=== PATIENT | female | born 1990 | race Caucasian/White ===

== ENCOUNTER → 2016-10-31 | Outpatient (REF) | payer OTHER | LOC: M LAB REF 12:35 | PROVIDERS: ATTEND Physician Assistant Medical | DX: J02.9 Acute pharyngitis, unspecified (principal) ==

== ENCOUNTER → 2017-05-16 | Outpatient (REF) | payer OTHER ==
[~2017-05-16] MED LIST: MULTTAB20 PO; REGL10TA6 PO
== END ==
LOC: M LAB REF 09:20
PROVIDERS: ATTEND Physician Assistant
DX: J06.9 Acute upper respiratory infection, unspecified (principal)

== ENCOUNTER 2017-06-19 18:36 | Emergency (ER) | payer OTHER ==
[~2017-06-19] VITALS: Ht 152.4 cm; Wt 86.4 kg
[2017-06-19] MEDS ORDERED: MULTTAB20 PO (18:42)
[2017-06-19] MEDS ORDERED: NS 1,000 ML IV ONE (21:15)
[2017-06-19 21:36] LABS: BASO % 0.4 % (0.0-1.0); EOS # 0.4 10^3/uL (0.0-0.50); EOS % 3.8 % (0.0-3.0); IMMATURE GRANULOCYTE % 0.3 % (0-0); LYMPH # 2.5 10^3/uL (1.5-6.5); LYMPH % 26.5 % (24.0-44.0); MEAN CORPUSCULAR HEMOGLOBIN 31.5 pg (27.0-33.0); MEAN CORPUSCULAR HGB CONC 35.1 g/dl (32.0-36.5); MONO # 0.7 10^3/uL (0.0-0.8); NEUTROPHILS # 5.9 10^3/uL (1.8-7.7); PLATELET COUNT, AUTOMATED 218 10^3/uL (150-450); RED CELL DISTRIBUTION WIDTH 12.5 % (11.5-14.5); WHITE BLOOD COUNT 9.5 10^3/uL (4.0-10.0)
[2017-06-19 22:15] LABS: ANION GAP 7 MEQ/L (8-16); BLOOD UREA NITROGEN 8 MG/DL (7-18); CARBON DIOXIDE LEVEL 26 MEQ/L (21-32); CHLORIDE LEVEL 104 MEQ/L (98-107); CREATININE FOR GFR 0.58 MG/DL (0.55-1.02); GLOMERULAR FILTRATION RATE > 60.0 (>60); GLUCOSE, FASTING 84 MG/DL (70-105); HCG, SERUM QUANTITATIVE 42814 MIU/ML; POTASSIUM SERUM 3.9 MEQ/L (3.5-5.1); SODIUM LEVEL 137 MEQ/L (136-145)
--- NOTE | 2017-06-19 23:30 | REPUSA ---
HISTORY: PAIN. LMP: 05/02/17. Gestational age by LMP: 6 weeks 6 days. DANNY by LMP: 02/06/18. TECHNIQUE: Transabdominal obstetrical ultrasound examination, with color flow Doppler imaging. FINDINGS: Examination demonstrates a single viable intrauterine with average ultrasound age of 7 weeks 3 days based upon pole measurement of 12 mm, with DANNY of 02/02/18. Active heart rate measured 150 bpm. No subchorionic hemorrhage was identified. No extrauterine pathologic mass lesions or abnormal fluid collections are seen. Corpus luteum cyst i s noted in the left ovary. IMPRESSION: Viable intrauterine single as discussed above with average ultrasound age of 7 weeks 3 days and DANNY of 02/02/18. Clinical correlation and followup imaging may be warranted as clinically indicated.
[2017-06-19] MEDS ORDERED: REGL10TA6 PO (23:48)
[2017-06-19 23:59] VITALS: BP 123/65
[2017-06-21] MEDS ORDERED: METAL LOCK LOOP XX ONE (17:03)
== END 2017-06-20 00:04 | disposition home or self-care (01) ==
LOC: M ED 18:36
DX: O99.89 Other specified diseases and conditions complicating pregnancy, childbirth and the puerperium (principal); A60.03 Herpesviral cervicitis; O99.281 Endocrine, nutritional and metabolic diseases complicating pregnancy, first trimester; E86.0 Dehydration; Z3A.01 Less than 8 weeks gestation of pregnancy; O99.331 Smoking (tobacco) complicating pregnancy, first trimester; F17.210 Nicotine dependence, cigarettes, uncomplicated; Z88.5 Allergy status to narcotic agent

== ENCOUNTER 2017-09-26 11:21 | Emergency (ER) | payer MEDICAID, OTHER ==
[2017-09-26 14:23] LABS: ALBUMIN 2.9 GM/DL (3.2-5.2); ALBUMIN/GLOBULIN RATIO 0.88 (1.00-1.93); ALKALINE PHOSPHATASE 83 U/L (45-117); ALT/SGPT 17 U/L (12-78); ANION GAP 7 MEQ/L (8-16); AST/SGOT 13 U/L (7-37); BILIRUBIN,DIRECT < 0.1 MG/DL (0.0-0.2); BILIRUBIN,TOTAL 0.3 MG/DL (0.2-1.0); BLOOD UREA NITROGEN 7 MG/DL (7-18); CALCIUM LEVEL 8.5 MG/DL (8.5-10.1); CARBON DIOXIDE LEVEL 24 MEQ/L (21-32); CHLORIDE LEVEL 106 MEQ/L (98-107); CREATININE FOR GFR 0.35 MG/DL (0.55-1.02); GLOMERULAR FILTRATION RATE > 60.0 (>60); GLUCOSE, FASTING 81 MG/DL (70-100); POTASSIUM SERUM 3.8 MEQ/L (3.5-5.1); SODIUM LEVEL 137 MEQ/L (136-145); TOTAL PROTEIN 6.2 GM/DL (6.4-8.2)
[2017-09-26 14:25] LABS: AMORPHOUS SEDIMENT MODERATE (NEGATIVE); APPEARANCE, URINE CLOUDY (CLEAR); BACTERIA, URINE AUTO NEGATIVE (NEGATIVE); BILIRUBIN, URINE AUTO NEGATIVE (NEGATIVE); BLOOD, URINE BLOOD NEGATIVE (NEGATIVE); COLOR, URINE YELLOW (YELLOW); GLUCOSE, URINE (UA) AUTO NEGATIVE (NEGATIVE); KETONE, URINE AUTO NEGATIVE (NEGATIVE); LEUKOCYTE ESTERASE, URINE AUTO 3+ (NEGATIVE); MUCUS, URINE SMALL (NEGATIVE); NITRITE, URINE AUTO NEGATIVE (NEGATIVE); PROTEIN, URINE AUTO NEGATIVE (NEGATIVE); RBC, URINE AUTO 8 /HPF (0-3); SPECIFIC GRAVITY URINE AUTO 1.019 (1.002-1.035); SQUAMOUS EPITHELIAL CELL UR AU 9 /HPF (0-6); WBC, URINE AUTO 6 /HPF (0-3)
[2017-09-26 14:34] LABS: INFLUENZA A AMPLIFICATION NEGATIVE (NEGATIVE); INFLUENZA B AMPLIFICATION NEGATIVE (NEGATIVE)
== END 2017-09-26 15:44 | disposition home or self-care (01) ==
LOC: M ED 11:21
DX: O99.512 Diseases of the respiratory system complicating pregnancy, second trimester (principal); J06.9 Acute upper respiratory infection, unspecified; J45.909 Unspecified asthma, uncomplicated; O99.332 Smoking (tobacco) complicating pregnancy, second trimester; F17.210 Nicotine dependence, cigarettes, uncomplicated; Z3A.21 21 weeks gestation of pregnancy; Z98.890 Other specified postprocedural states; Z88.5 Allergy status to narcotic agent
CPT/HCPCS: 80076

== ENCOUNTER 2017-10-24 15:35 | Emergency (ER) | payer MEDICAID ==
[2017-10-24 16:37] LABS: HEMATOCRIT 31.7 % (36.0-47.0); HEMOGLOBIN 11.4 g/dl (12.0-16.0); MEAN CORPUSCULAR HEMOGLOBIN 32.6 pg (27.0-33.0); MEAN CORPUSCULAR VOLUME 90.6 fl (80.0-96.0); PLATELET COUNT, AUTOMATED 228 10^3/uL (150-450); RED CELL DISTRIBUTION WIDTH 12.5 % (11.5-14.5); WHITE BLOOD COUNT 9.6 10^3/uL (4.0-10.0)
[2017-10-24] MEDS ORDERED: METAL LOCK LOOP XX (16:53)
[2017-10-24 16:58] LABS: ANION GAP 8 MEQ/L (8-16); BLOOD UREA NITROGEN 7 MG/DL (7-18); CALCIUM LEVEL 8.7 MG/DL (8.5-10.1); CARBON DIOXIDE LEVEL 24 MEQ/L (21-32); CHLORIDE LEVEL 105 MEQ/L (98-107); CREATININE FOR GFR 0.44 MG/DL (0.55-1.30); GLOMERULAR FILTRATION RATE > 60.0 (>60); GLUCOSE, FASTING 79 MG/DL (70-100); POTASSIUM SERUM 3.9 MEQ/L (3.5-5.1); SODIUM LEVEL 137 MEQ/L (136-145)
[2017-10-24] MEDS: NS 1,000 ML IV (17:00)
[2017-10-24 18:01] LABS: KETONE, URINE AUTO RFX NEGATIVE (NEGATIVE); MUCUS, URINE RFX SMALL (NEGATIVE); NITRITE, URINE AUTO RFX NEGATIVE (NEGATIVE); RBC, URINE AUTO RFX 11 /HPF (0-3); SPECIFIC GRAVITY UR AUTO RFX 1.005 (1.002-1.035); SQUAM EPITHELIAL CELL UR AURFX 17 /HPF (0-6); WBC, URINE AUTO RFX 5 /HPF (0-3)
[2017-10-24 18:03] LABS: LEUKOCYTE ESTERASE UR AUTO RFX 3+ (NEGATIVE)
== END 2017-10-24 19:30 | disposition home or self-care (01) ==
LOC: M ED 15:35
DX: O99.89 Other specified diseases and conditions complicating pregnancy, childbirth and the puerperium (principal); R55 Syncope and collapse; O99.512 Diseases of the respiratory system complicating pregnancy, second trimester; J45.909 Unspecified asthma, uncomplicated; O99.332 Smoking (tobacco) complicating pregnancy, second trimester; F17.210 Nicotine dependence, cigarettes, uncomplicated; Z3A.25 25 weeks gestation of pregnancy; Z88.5 Allergy status to narcotic agent
CPT/HCPCS: 93005

== ENCOUNTER → 2017-11-02 | Outpatient (CLI) | payer MEDICAID, OTHER ==
[2017-11-02 14:22] LABS: HEMATOCRIT 31.9 % (36.0-47.0); HEMOGLOBIN 10.9 g/dl (12.0-16.0); MEAN CORPUSCULAR HEMOGLOBIN 32.4 pg (27.0-33.0); MEAN CORPUSCULAR HGB CONC 34.2 g/dl (32.0-36.5); MEAN CORPUSCULAR VOLUME 94.9 fl (80.0-96.0); PLATELET COUNT, AUTOMATED 218 10^3/uL (150-450); RED BLOOD COUNT 3.36 10^6/uL (4.00-5.40); RED CELL DISTRIBUTION WIDTH 12.7 % (11.5-14.5); WHITE BLOOD COUNT 10.4 10^3/uL (4.0-10.0)
[2017-11-02 15:07] LABS: GLUCOSE CHALLENGE TEST 1 HOUR 106 MG/DL (LESS THAN 140)
== END ==
LOC: M WUC 08:42
DX: Z36.89 Encounter for other specified antenatal screening (principal); Z3A.00 Weeks of gestation of pregnancy not specified
CPT/HCPCS: 82950

== ENCOUNTER → 2017-11-17 | Outpatient (REF) | payer OTHER ==
[2017-11-17 14:14] LABS: FREE T4 1.01 NG/DL (0.76-1.46)
== END ==
LOC: M LAB REF 13:01
DX: E04.2 Nontoxic multinodular goiter (principal)
CPT/HCPCS: 84443

== ENCOUNTER → 2017-12-28 | Outpatient (REF) | payer OTHER | LOC: M LAB REF 17:25 | DX: Z36.85 Encounter for antenatal screening for Streptococcus B (principal); Z3A.00 Weeks of gestation of pregnancy not specified | CPT/HCPCS: 87081 ==

== ENCOUNTER 2018-01-11 16:04 | Outpatient (CLI) | payer OTHER ==
[2018-01-11] MEDS ORDERED: LR 1,000 ML IV (16:15)
[2018-01-11] MEDS: LACTATED RINGER'S 1000 ML IV (18:11)
== END 2018-01-11 19:26 | disposition home or self-care (01) ==
LOC: M LDO 16:04
DX: O36.8931 Maternal care for other specified fetal problems, third trimester, fetus 1 (principal); Z3A.37 37 weeks gestation of pregnancy
CPT/HCPCS: 76815

== ENCOUNTER 2018-01-21 15:37 | Inpatient (IN) | payer OTHER ==
[2018-01-21] MEDS: LACTATED RINGER'S 1000 ML IV (16:21)
[2018-01-21 16:46] LABS: HEMATOCRIT 32.3 % (36.0-47.0); HEMOGLOBIN 11.5 g/dl (12.0-15.5); MEAN CORPUSCULAR HEMOGLOBIN 32.7 pg (27.0-33.0); MEAN CORPUSCULAR HGB CONC 35.6 g/dl (32.0-36.5); MEAN CORPUSCULAR VOLUME 91.8 fl (80.0-96.0); PLATELET COUNT, AUTOMATED 221 10^3/uL (150-450); RED BLOOD COUNT 3.52 10^6/uL (4.00-5.40)
[2018-01-21] MEDS ORDERED: FENTANYL 2MCG/ML ROPIVACAINE 0.2% IN 0.9% NACL 200ML IVBAG As Ordered (17:03)
[2018-01-21] MEDS: LR 1,000 ML IV (17:41)
[2018-01-21] MEDS ORDERED: LACTATED RINGER'S 1000 ML IV (18:30)
[2018-01-21] MEDS ORDERED: NALOXONE INJ 0.4 MG/1 ML VIAL (J2310) IV (18:30)
[2018-01-21] MEDS ORDERED: ePHEDrine SULFATE 25 MG/5 ML(5MG/ML) SYRINGE IV (18:30)
[2018-01-21] MEDS ORDERED: FENTANYL/ROPIVACAINE/NACL BAG 200 ML EPIDURAL (18:30)
[2018-01-21] MEDS ORDERED: EPIDURAL COMMENT XX (18:30)
[2018-01-21] MEDS ORDERED: REFRIGERATOR IV KEYS XX (18:30)
[2018-01-21] MEDS ORDERED: diphenhydrAMINE INJ 50MG/ML VIAL (J1200) IV (18:30)
[2018-01-21] MEDS ORDERED: EPIDURAL/PCA KEYS XX (18:30)
[2018-01-21] MEDS ORDERED: ONDANSETRON 4MG/2ML VIAL (J2405) IV (18:30)
[2018-01-21] MEDS: OXYTOCIN DRIP 30 UNITS in APPROPRIATE DILUENT 1 EA IV (20:59)
[2018-01-22] MEDS ORDERED: ANUSOL HC CREAM 30GM TOP
[2018-01-22] MEDS ORDERED: DOCUSATE SODIUM 100 MG CAP PO
[2018-01-22] MEDS ORDERED: DIBUCAINE 1% OINTMENT 30GM TOP
[2018-01-22] MEDS ORDERED: ACETAMINOPHEN 500 MG TAB PO
[2018-01-22] MEDS ORDERED: METHYLERGONOVINE MALEATE 0.2 MG TAB PO
[2018-01-22] MEDS: MEASLES,MUMPS,RUBELLA VACCINE INJ (MMR-II) (90707) SC (01:31)
[2018-01-22] MEDS: RHOGAM 300 MCG (1500 IU) INJ (J2790) IM (01:31)
[2018-01-22] MEDS: OXYTOCIN DRIP 30 UNITS in APPROPRIATE DILUENT 1 EA IV (01:39)
[2018-01-22] MEDS: PRENATAL VITAMINS CHEWABLE TABLET PO (08:34)
[2018-01-22] MEDS: IBUPROFEN 800 MG TAB PO ×2 (08:37→16:05)
[2018-01-23] MEDS: IBUPROFEN 800 MG TAB PO (04:28)
[2018-01-23] MEDS: PRENATAL VITAMINS CHEWABLE TABLET PO (07:48)
== END 2018-01-23 10:20 | disposition home or self-care (01) | DRG 560 ==
LOC: M LDI 15:37 → M OBS 01-22 01:21
PROVIDERS: Advanced Practice Midwife
PROC: 10E0XZZ Delivery of Products of Conception, External Approach (ICD-10-PCS; principal; 2018-01-21)
PROC: 10907ZC Drainage of Amniotic Fluid, Therapeutic from Products of Conception, Via Natural or Artificial Opening (ICD-10-PCS; 2018-01-21)
DX: O99.334 Smoking (tobacco) complicating childbirth (principal); F17.210 Nicotine dependence, cigarettes, uncomplicated; Z3A.38 38 weeks gestation of pregnancy; O32.6XX0 Maternal care for compound presentation, not applicable or unspecified; Z37.0 Single live birth

== ENCOUNTER → 2018-05-14 | Outpatient (CLI) | payer OTHER | LOC: M RAD 19:13 | DX: R05 Cough (principal); R50.9 Fever, unspecified | CPT/HCPCS: 71046 ==

== ENCOUNTER → 2019-12-08 | Outpatient (CLI) | payer OTHER ==
[~2019-12-08] MED LIST changes: +FERR325T3 PO; +KEFL500C17 PO
--- NOTE | 2019-12-08 18:39 | REP ---
Lumbar spine series: Three views. History: Contusion of the lower back and pelvis. Findings: Lumbar vertebral body heights are preserved. Alignment is normal. No fracture or collapse is seen. Pedicles and posterior elements are intact. Psoas margins are symmetric. Sacrum is unremarkable. An IUD is noted just to the left of midline in the pelvis. Impression: Negative three-view lumbar spine series. No evidence of fracture or collapse. Electronically Signed by Foster Carreon MD 12/08/2019 07:19 P
== END ==
LOC: M ADAMS 16:55
PROVIDERS: ATTEND Physician Assistant
DX: S30.0XXA Contusion of lower back and pelvis, initial encounter (principal); X58.XXXA Exposure to other specified factors, initial encounter; Y92.89 Other specified places as the place of occurrence of the external cause; Y93.9 Activity, unspecified; Y99.9 Unspecified external cause status

== ENCOUNTER 2020-07-11 18:39 | Emergency (ER) | payer OTHER ==
[~2020-07-11] VITALS: Ht 152.4 cm; Wt 90.9 kg
[2020-07-11] MEDS ORDERED: NAPR250T4 PO (18:49)
[2020-07-11 19:27] LABS: BASO % 0.2 % (0.0-1.0); EOS % 0.3 % (0.0-3.0); HEMATOCRIT 42.5 % (36.0-47.0); HEMOGLOBIN 14.6 g/dl (12.0-15.5); LYMPH # 1.8 10^3/uL (1.5-5.0); LYMPH % 15.2 % (24.0-44.0); MEAN CORPUSCULAR HEMOGLOBIN 30.2 pg (27.0-33.0); MEAN CORPUSCULAR HGB CONC 34.4 g/dl (32.0-36.5); MEAN CORPUSCULAR VOLUME 87.8 fl (80.0-96.0); MONO # 0.7 10^3/uL (0.0-0.8); MONO % 5.9 % (0.0-5.0); NEUTROPHILS # 9.5 10^3/uL (1.5-8.5); NEUTROPHILS % 78.1 % (36.0-66.0); PLATELET COUNT, AUTOMATED 247 10^3/uL (150-450); RED BLOOD COUNT 4.84 10^6/uL (4.00-5.40); WHITE BLOOD COUNT 12.1 10^3/uL (4.0-10.0)
[2020-07-11 20:14] LABS: ALBUMIN 3.9 GM/DL (3.2-5.2); ALT/SGPT 17 U/L (12-78); BILIRUBIN,DIRECT 0.2 MG/DL (0.0-0.2); BILIRUBIN,TOTAL 0.7 MG/DL (0.2-1.0); LIPASE 63 U/L (73-393); TOTAL PROTEIN 7.4 GM/DL (6.4-8.2)
[2020-07-11] MEDS ORDERED: KEFL500C17 PO (20:31)
[2020-07-11] MEDS ORDERED: PYRI1TAB5 PO (20:32)
[2020-07-11 20:36] LABS: HCG, SERUM QUALITATIVE NEGATIVE (NEGATIVE)
[2020-07-11 20:40] VITALS: BP 118/63
[2020-07-11] MEDS ORDERED: PHENAZOPYRIDINE 100 MG TAB PO ONE (20:45)
[2020-07-11] MEDS ORDERED: CEPHALEXIN 500 MG CAP PO ONE (20:45)
[2020-07-11 21:52] LABS: CHLAMYDIA DNA AMPLIFICATION NEGATIVE (NEGATIVE); GC DNA AMPLIFICATION NEGATIVE (NEGATIVE)
== END 2020-07-11 20:42 | disposition home or self-care (01) ==
LOC: M ED 18:39
DX: N39.0 Urinary tract infection, site not specified (principal); J45.909 Unspecified asthma, uncomplicated; F17.290 Nicotine dependence, other tobacco product, uncomplicated; Z88.5 Allergy status to narcotic agent; Z97.5 Presence of (intrauterine) contraceptive device

== ENCOUNTER → 2021-05-14 | Outpatient (REF) | payer OTHER ==
[~2021-05-14] MED LIST changes: +NAPR-849 PO; +PYRI1TAB5 PO
[2021-05-14 13:01] LABS: BASO % 0.5 % (0.0-1.0); EOS # 0.1 10^3/uL (0.0-0.5); EOS % 1.7 % (0.0-3.0); HEMATOCRIT 40.3 % (36.0-47.0); LYMPH % 30.8 % (24.0-44.0); MEAN CORPUSCULAR HEMOGLOBIN 30.8 pg (27.0-33.0); MEAN CORPUSCULAR HGB CONC 34.7 g/dl (32.0-36.5); MEAN CORPUSCULAR VOLUME 88.6 fl (80.0-96.0); MONO # 0.5 10^3/uL (0.0-0.8); MONO % 7.7 % (2.0-8.0); NEUTROPHILS # 3.8 10^3/uL (1.5-8.5); PLATELET COUNT, AUTOMATED 236 10^3/uL (150-450); RED BLOOD COUNT 4.55 10^6/uL (4.00-5.40); WHITE BLOOD COUNT 6.4 10^3/uL (4.0-10.0)
[2021-05-14 14:13] LABS: ALBUMIN 3.7 GM/DL (3.2-5.2); ALT/SGPT 29 U/L (12-78); BILIRUBIN,TOTAL 0.4 MG/DL (0.2-1.0); BLOOD UREA NITROGEN 10 MG/DL (7-18); CALCIUM LEVEL 9.4 MG/DL (8.5-10.1); CARBON DIOXIDE LEVEL 28 MEQ/L (21-32); CHLORIDE LEVEL 105 MEQ/L (98-107); CHOLESTEROL LEVEL 145 MG/DL (<200); CHOLESTEROL RISK RATIO 4.027 (<5); CREATININE FOR GFR 0.72 MG/DL (0.55-1.30); FREE T4 1.12 NG/DL (0.76-1.46); GLOMERULAR FILTRATION RATE > 60.0 (>60); GLUCOSE, FASTING 93 MG/DL (70-100); HDL CHOLESTEROL 36 MG/DL (>40); LDL CHOLESTEROL 92 MG/DL (<100); NON-HDL-C 109 MG/DL; POTASSIUM SERUM 4.2 MEQ/L (3.5-5.1); SODIUM LEVEL 139 MEQ/L (136-145); TOTAL PROTEIN 6.9 GM/DL (6.4-8.2); TRIGLYCERIDES LEVEL 85 MG/DL (<150)
== END ==
LOC: M SFHCADAM 10:49
PROVIDERS: ATTEND Physician Assistant Medical
DX: E66.01 Morbid (severe) obesity due to excess calories (principal); Z72.0 Tobacco use; E04.1 Nontoxic single thyroid nodule

== ENCOUNTER → 2021-05-24 | Outpatient (CLI) | payer OTHER ==
--- NOTE | 2021-05-24 12:48 | REP ---
INDICATION: CYST OF THYROID. COMPARISON: 06/21/2008 TECHNIQUE: Real-time sonographic evaluation of the thyroid FINDINGS: The right lobe of the thyroid gland measures 5.8 x 2 x 1.9 cm and the left lobe measures 5.1 x 2.1 x 1.8 cm. The isthmus measures between 2 and 3 mm. Once again, there are tiny mm sized cysts 3 in the right lobe and 3 in the left lobe. 1 cyst has developed since the last exam on the right and 2 cysts have developed on the left. IMPRESSION: Mild thyromegaly and minimal incidental cysts as described above. <Electronically signed by Raghav Fine > 05/24/21 [id number]
== END ==
LOC: M RAD 11:54
PROVIDERS: ATTEND Physician Assistant Medical
DX: E04.1 Nontoxic single thyroid nodule (principal)

== ENCOUNTER 2021-07-14 20:38 | Emergency (ER) | payer OTHER ==
[~2021-07-14] VITALS: Ht 154.9 cm; Wt 103.6 kg
[2021-07-14 20:38] VITALS: BP 125/79
--- NOTE | 2021-07-14 21:37 | REPVR ---
PROCEDURE INFORMATION: Exam: XR Left Forearm Exam date and time: 07/14/2021 9:07 PM Age: 31 years old Clinical indication: Injury or trauma; Fall; Swelling (edema); Arm, lower; Left; Additional info: Fell down a couple stairs TECHNIQUE: Imaging protocol: XR Left forearm. Views: 2 views. COMPARISON: No relevant prior studies available. FINDINGS: Bones/joints: Normal. Soft tissues: Normal. IMPRESSION: Negative left forearm. Electronically signed by: Baljeet Timmons On 07/14/2021 21:37:22 PM
--- OUTSIDE RECORDS SUMMARY | 2021-07-14 22:41 | CCD ---
Author Author [facility] Organization [facility] Address Unknown Phone Unavailable Care Team Providers [facility] Owner Name Role Phone Susanne Casey Unavailable PROBLEMS Type Condition ICD9-CM Code [id number] Code Onset Dates Condition S tatus W/U Status Risk SNOMED Code Notes Problem Cyst of thyroid E04.1 Active confirmed 7232 5004 Problem Morbid obesity due to excess calories E66.01 Ac tive confirmed 092335391 ALLERGIES Allergen (clinical drug ingredient) Drug/Non Drug Allergy do cumented on EMR Reaction Allergy Type Onset Date Status codeine Codeine bloody nose Drug Allergy Active ENCOUNTERS from 1990 to 2021-06-04 Encounter Location Date Provider Diagnosis [facility] [address] [place] [address] May, Susanne Casey Cyst of thyroid E04.1 IMMUNIZATIONS No Information SOCIAL HISTORY Tobacco Use: Social History Observation Description Date Details (start date - stop date) Current Smoker Sex Assigned At : Social History Observation Description Sex Assigned At Unknown Education: Question Answer Notes Level of Education: Finished High School Audit Question Answer Notes Total Score: 0 Interpretation: Alcohol Education Language: Question Answer Notes Languages spoken: Upper Sorbian Evangelical: Question Answer Notes Evangelical No worship beliefs that would impact health care. Sexual Hx: Question Answer Notes Had sex in the last 12 months (vaginal, oral, or anal)? Yes LMP: 05/01/21 Have you ever had an STD? No with Men only Use protection? No Drug and Alcohol Question Answer Notes Total Score: 0 Interpretation: No problems reported Alcohol Screening: Question Answer Notes Did you have a drink containing alcohol in the past year? No Points 0 Interpretation Negative Tobacco Use: Question Answer Notes Are you a: current smoker vape Are you interested in quitting? Thinking about quitting Counseled the patient on smoking cessation, education provid ed 05/14/2021 REASON FOR REFERRAL No Information VITAL SIGNS No information MEDICATIONS Medication SIG (Take, Route, Frequency, Duration) Notes Start Da te End Date Status IUD's Active Tylenol 325 MG 1 tablet as needed Orally every 6 hrs Active PROCEDURES No Information RESULTS No Results REASON FOR VISIT US MEDICAL (GENERAL) HISTORY Type Description Date Medical History obesity Medical History seasonal allergies Medical History reece dep Medical History cyst on thyroid Surgical History reconstruction on middle left finger 199 6 Hospitalization History vaginal deliveries 2011, 2017 Goals Section No Information Health Concerns No Information MEDICAL EQUIPMENT No Information MENTAL STATUS No Information FUNCTIONAL STATUS No Information ASSESSMENTS Encounter Date Diagnosis Assessment Notes Treatment Notes Treatm ent Clinical Notes May, Cyst of thyroid (ICD-10 - E04.1) PLAN OF TREATMENT Future Test Test Name Order Date PLZ THYROID, SOFT TISSUE HEAD +NECK US [id number] Next Appt Details Provider Name:Susanne Casey, 2021-06-25 08:30:00 AM, [address], , [place], [address], Insurance Providers Payer Name Payer Address Payer Phone Insured Name Patient Relati onship to Insured Coverage Start Date Coverage End Date [facility] COMM[facility]AN [facility] [address] [facility] [phone] MOMO AMBROSIO self
--- OUTSIDE RECORDS SUMMARY | 2021-07-14 22:41 | CCD ---
Author Author [facility] Organization [facility] Address Unknown Phone Unavailable Support Name Relationship Address Phone [employer] Next Of Kin [address] [place] [address] UE Next Of Kin Unknown Un[place] [address] [place] [address] Unavailable [place] [address] Unavailable JUDSON AMBROSIO Next Of Kin [address] [place] [address] [place], [place] Unavailable Re-disclosure Warning The records that you are about to access may contain information from federally-assisted alcohol or drug abuse programs. If such information is present, then the following federally mandated warning applies: This information has been disclosed to you from records protected by federal confidentiality rules (42 CFR part 2). The federal rules prohibit you from making any further disclosure of this information unless further disclosure is expressly permitted by the written consent of the person to whom it pertains or as otherwise permitted by 42 CFR part 2. A general authorization for the release of medical or other information is NOT sufficient for this purpose. The Federal rules restrict any use of the information to criminally investigate or prosecute any alcohol or drug abuse patient.The records that you are about to access may contain highly sensitive health information, the redisclosure of which is protected by Article 27-F of the [place] State Public Health law. If you continue you may have access to information: Regarding HIV / AIDS; Provided by facilities licensed or operated by the [facility] Office of Mental Health; or Provided by the [facility] Office for People With Developmental Disabilities. If such information is present, then the following [facility] mandated warning applies: This information has been disclosed to you from confidential records which are protected by state law. State law prohibits you from making any further disclosure of this information without the specific written consent of the person to whom it pertains, or as otherwise permitted by law. Any unauthorized further disclosure in violation of state law may result in a fine or retirement sentence or both. A general authorization for the release of medical or other information is NOT sufficient authorization for further disc losure. Family History Family Member Name Family Member Gender Family Member Status Date o f Status Description Data Source(s) Unknown Unknown Problem MEDENT ([facility]) Encounters Encounter Providers Location Date Indications Data Source(s ) [place] [address] [address] 05/28/2021 12:00:00 AM EDT eCW1 ([facility]) [place] [address] [address] 05/14/2021 12:00:00 AM EDT eCW1 ([facility]) Medications No Information Insurance Providers Payer name Policy type / Coverage type Policy ID Covered republican ID Covered republican's relationship to goddard Policy Goddard Plan Information [facility] COMM[facility] [id number] SP [id number] [facility] [place] [id number] SP [id number] [facility] O [id number] S [id number] [employer] ZHEN [id number] SP [id number] MEDICAID [id number] SP [id number] MEDICAID [id number] SP [id number] [employer] O [id number] S [id number] [employer] [id number] SP [id number] [employer] [id number] SP [id number] [facility] [place] [id number] Self [id number] [facility] (O) [id number] Self [id number] [facility] COMMUNITY PLAN [facility] [id number] SP [id number] Problems, Conditions, and Diagnoses Code Display Name Description Problem Type Effective Dates Data Source(s) E66.01 [id number] Morbid obesity due to excess calories Pro blem 05/14/2021 12:00:00 AM EDT eCW1 ([facility]) E04.1 [id number] Cyst of thyroid Problem 05/14/2021 12:00:00 AM EDT eCW1 ([facility]) Surgeries/Procedures No Information Results ID Date Data Source TSH 05/14/2021 12:00:00 AM EDT eCW1 ([facility]) Name Value Range Interpretation Code Description Data Nory rce(s) Supporting Document(s) 1.120 0.358-3.740 THYROID STIMULATING HORM ONE eCW1 ([facility]) ID Date Data Source LIPID PANEL (CARDIAC RISK) 05/14/2021 12:00:00 AM EDT eCW1 ( [facility]) Name Value Range Interpretation Code Description Data Nory rce(s) Supporting Document(s) Triglyceride [Mass/volume] in Serum or Plasma by calculation 85 <150 TRIGLYCERIDES LEVEL eC1 ([facility]) Cholesterol [Moles/volume] in Serum or Plasma 145 <200 CHOLESTEROL LEVEL eC ([facility]) 4.027 <5 CHOLESTEROL RISK RATIO eCW1 ([facility]) Cholesterol in HDL [Moles/volume] in Serum or Plasma 36 >40 HDL CHOLESTEROL eCW1 ([facility]) Cholesterol in LDL [Mass/volume] in Serum or Plasma by calculation 92 <100 LDL CHOLESTEROL eCW1 ([facility]) 109 NON-HDL-C eCW1 ([facility]) ID Date Data Source FREE T4 05/14/2021 12:00:00 AM EDT eCW1 ([facility]) Name Value Range Interpretation Code Description Data Nory rce(s) Supporting Document(s) 1.12 0.76-1.46 FREE T4 eCW1 ([facility]) ID Date Data Source Comprehensive Metabolic Profile (CMP) 05/14/2021 12:00:00 AM EDT eCW1 ([facility]) Name Value Range Interpretation Code Description Data Nory rce(s) Supporting Document(s) 10 7-18 BLOOD UREA NITROGEN eCW1 ([facility]) 93 70-100 GLUCOSE, FASTING eCW1 ([facility]) > 60.0 >60 GLOMERULAR FILTRATION RATE eCW 1 ([facility]) 139 136-145 SODIUM LEVEL eCW1 ([facility]) 0.72 0.55-1.30 CREATININE FOR GFR eCW1 ([facility]) 4.2 3.5-5.1 POTASSIUM SERUM eCW1 ([facility]) 28 21-32 CARBON DIOXIDE LEVEL eCW1 ([facility]) 105 98-107 CHLORIDE LEVEL eCW1 ([facility]) 29 12-78 ALT/SGPT eCW1 ([facility]) 16 7-37 AST/SGOT eCW1 ([facility]) 9.4 8.5-10.1 CALCIUM LEVEL eCW1 ([facility]) 81 45-117 ALKALINE PHOSPHATASE eCW1 ([facility]) 0.4 0.2-1.0 BILIRUBIN,TOTAL eCW1 ([facility]) 3.7 3.2-5.2 ALBUMIN eCW1 ([facility]) 1.2 1.2-2.2 ALBUMIN/GLOBULIN RATIO eCW1 ([facility]) 6.9 6.4-8.2 TOTAL PROTEIN eCW1 ([facility]) ID Date Data Source CBC with Differential 05/14/2021 12:00:00 AM EDT eCW1 ([facility]) Name Value Range Interpretation Code Description Data Nory rce(s) Supporting Document(s) 6.4 4.0-10.0 WHITE BLOOD COUNT eCW1 ([facility]) 4.55 4.00-5.40 RED BLOOD COUNT eCW1 ([facility]) 14.0 12.0-15.5 HEMOGLOBIN eCW1 ([facility]) 40.3 36.0-47.0 HEMATOCRIT eCW1 ([facility]) 88.6 80.0-96.0 MEAN CORPUSCULAR VOLUME e CW1 ([facility]) 30.8 27.0-33.0 MEAN CORPUSCULAR HEMOGLOB IN eCW1 ([facility]) 34.7 32.0-36.5 MEAN CORPUSCULAR HGB CONC eCW1 ([facility]) 12.1 11.5-14.5 RED CELL DISTRIBUTION WID TH eCW1 ([facility]) 236 150-450 PLATELET COUNT, AUTOMATED eCW1 ([facility]) 30.8 24.0-44.0 LYMPH % eCW1 ([facility]) 7.7 2.0-8.0 MONO % eCW1 ([facility]) 59.0 36.0-66.0 NEUTROPHILS % eCW1 ([facility]) 0.5 0.0-1.0 BASO % eCW1 ([facility]) 1.7 0.0-3.0 EOS % eCW1 ([facility]) 0.5 0.0-0.8 MONO # eCW1 ([facility]) 2.0 1.5-5.0 LYMPH # eCW1 ([facility]) 3.8 1.5-8.5 NEUTROPHILS # eCW1 ([facility]) 0.0 0.0-0.2 BASO # eCW1 ([facility]) 0.1 0.0-0.5 EOS # eCW1 ([facility]) ID Date Data Source [id number] 10/10/2020 12:00:00 AM EST [facility] Name Value Range Interpretation Code Description Data Nory rce(s) Supporting Document(s) SARS-CoV2 Rapid Antigen Negative [facility] This lab was reported by Rubio Bowman re. Procedure Social History Code Duration Value Status Description Data Source(s ) Smoking 05/14/2021 12:00:00 AM EDT Current Smoker completed Curre nt Smoker eCW1 ([facility]) Smoking 05/14/2021 12:00:00 AM EDT Current Smoker completed Curre nt Smoker eCW1 ([facility]) Vital Signs ID Date Data Source UNK Name Value Range Interpretation Code Description Data Source(s) Body weight 228 [lb_av] 228 [lb_av] eCW1 ([facility]) Body height 60 [in_i] 60 [in_i] eCW1 ([facility]) Body mass index (BMI) [Ratio] 44.52 kg/m2 44.52 kg/m2 eCW1 ([facility]) Heart rate 91 /min 91 /min eCW1 ([facility]) Respiratory rate 18 /min 18 /min eCW1 ([facility]) Body temperature 98.4 [degF] 98.4 [degF] eCW1 ( [facility]) Systolic blood pressure 116 mm[Hg] 116 mm[Hg] e CW1 ([facility]) Diastolic blood pressure 90 mm[Hg] 90 mm[Hg] eCW1 ([facility]) Systolic blood pressure 124 mm[Hg] 124 mm[Hg] M EDENT ([facility]) Diastolic blood pressure 86 mm[Hg] 86 mm[Hg] MEDENT ([facility]) Heart rate 85 /min 85 /min MEDENT ([facility]) Respiratory rate 16 /min 16 /min MEDENT ( [facility] Oxygen saturation in Arterial blood by Pulse oximetry 99 % 99 % MEDENT ([facility]) Body temperature 98.9 [degF] 98.9 [degF] MEDENT ([facility]) Body weight 200.00 [lb_av] 200.00 [lb_av] MEDEN T ([facility]) Body height 60 [in_i] 60 [in_i] MEDENT ([facility]) 5'0" Body mass index (BMI) [Ratio] 39.1 kg/m2 39.1 k g/m2 MEDENT ([facility])
--- OUTSIDE RECORDS SUMMARY | 2021-07-14 22:41 | CCD ---
Author Author [facility] Organization [facility] Address Unknown Phone Unavailable Care Team Providers Care Individual Pension Adviser Name Role Phone Susanne Casey Unavailable PROBLEMS Type Condition ICD9-CM Code HTE30-BB Code Onset Dates Condition S tatus W/U Status Risk SNOMED Code Notes Problem Cyst of thyroid E04.1 Active confirmed 7232 5004 Problem Morbid obesity due to excess calories E66.01 Ac tive confirmed [id number] ALLERGIES Allergen (clinical drug ingredient) Drug/Non Drug Allergy do cumented on EMR Reaction Allergy Type Onset Date Status codeine Codeine bloody nose Drug Allergy Active ENCOUNTERS from 1990 to 2021-05-16 Encounter Location Date Provider Diagnosis [facility] [address] [place] [address] May, 2021 Susanne Casey Morbid obesity due to excess calories E6 6.01 ; Annual physical exam Z00.00 ; Vapes nicotine containing substance Z72.0 and Cyst of thyroid E04.1 IMMUNIZATIONS No Information SOCIAL HISTORY Tobacco Use: Social History Observation Description Date Details (start date - stop date) Current Smoker Sex Assigned At : Social History Observation Description Sex Assigned At Unknown Education: Question Answer Notes Level of Education: Finished High School Audit Question Answer Notes Total Score: 0 Interpretation: Alcohol Education Language: Question Answer Notes Languages spoken: Vietnamese Anabaptism: Question Answer Notes Anabaptism No methodist beliefs that would impact health care. Sexual [...] Counseled the patient on smoking cessation, education [facility] ed 05/14/2021 REASON FOR REFERRAL No Information VITAL SIGNS Weight 228 lbs May, Height 60 in May, BMI 44.52 kg/m2 May, Heart Rate 91 /min May, Respiratory Rate 18 /min May, Temperature 98.4 degrees Fahrenheit May, Oximetry 100 May, Blood pressure systolic 116 mm Hg May, Blood pressure diastolic 90 mm Hg May, MEDICATIONS Medication SIG (Take, Route, Frequency, Duration) Notes Start Da te End Date Status IUD's Active Tylenol 325 MG 1 tablet as needed Orally every 6 hrs Active PROCEDURES No Information RESULTS Component Value Reference Range CBC with Differential Reviewed date:05/14/2021 16:43:42 Interpretation: Performing Lab:[facility] [address] [address] , ,[place] [address] WHITE BLOOD COUNT 6.4 4.0-10.0 RED BLOOD COUNT 4.55 4.00-5.40 HEMOGLOBIN 14.0 12.0-15.5 HEMATOCRIT 40.3 36.0-47.0 MEAN CORPUSCULAR VOLUME 88.6 80.0-96.0 MEAN CORPUSCULAR HEMOGLOBIN 30.8 27.0-33.0 MEAN CORPUSCULAR HGB CONC 34.7 32.0-36.5 RED CELL DISTRIBUTION WIDTH 12.1 11.5-14.5 PLATELET COUNT, AUTOMATED 236 150-450 NEUTROPHILS % 59.0 36.0-66.0 LYMPH % 30.8 24.0-44.0 MONO % 7.7 2.0-8.0 EOS % 1.7 0.0-3.0 BASO % 0.5 0.0-1.0 NEUTROPHILS # 3.8 1.5-8.5 LYMPH # 2.0 1.5-5.0 MONO # 0.5 0.0-0.8 EOS # 0.1 0.0-0.5 BASO # 0.0 0.0-0.2 Comprehensive Metabolic Profile (CMP) Reviewed date:05/14/2021 16:43:42 Interpretation: Performing Lab:[facility] [address] [address] , ,[place] [address] GLUCOSE, FASTING 93 70-100 BLOOD UREA NITROGEN 10 7-18 CREATININE FOR GFR 0.72 0.55-1.30 GLOMERULAR FILTRATION RATE > 60.0 >60 SODIUM LEVEL 139 136-145 POTASSIUM SERUM 4.2 3.5-5.1 CHLORIDE LEVEL 105 98-107 CARBON DIOXIDE LEVEL 28 21-32 CALCIUM LEVEL 9.4 8.5-10.1 AST/SGOT 16 7-37 ALT/SGPT 29 12-78 ALKALINE PHOSPHATASE 81 45-117 BILIRUBIN,TOTAL 0.4 0.2-1.0 TOTAL PROTEIN 6.9 6.4-8.2 ALBUMIN 3.7 3.2-5.2 ALBUMIN/GLOBULIN RATIO 1.2 1.2-2.2 FREE T4 Reviewed date:05/14/2021 16:43:42 Interpretation: Performing Lab:[facility] [address] [place] [address] , ,[facility] FREE T4 1.12 0.76-1.46 LIPID PANEL (CARDIAC RISK) Reviewed date:05/14/2021 16:43:42 Interpretation: Performing Lab:[facility] [address] [place] [address] , ,[facility] TRIGLYCERIDES LEVEL 85 <150 CHOLESTEROL LEVEL 145 <200 HDL CHOLESTEROL 36 >40 LDL CHOLESTEROL 92 <100 NON-HDL-C 109 CHOLESTEROL RISK RATIO 4.027 <5 TSH Reviewed date:05/14/2021 16:43:42 Interpretation: Performing Lab:[facility] [address] [address] , ,[facility] THYROID STIMULATING HORMONE 1.120 0.358-3.740 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 Discussed various options for cessation with patient. May, Annual physical exam (ICD-10 - Z00.00) May, Vapes nicotine containing substance (ICD-10 - Z7 2.0) Pt counselled heavily on the importance of tobacco abstinence and the dangers not quiting may pose. Discussed various options for cessation with patient. May, Cyst of thyroid (ICD-10 - E04.1) US ordered, BW today. PLAN OF TREATMENT Treatment Notes Assessment Notes Clinical Notes Morbid obesity due to excess calories Pt counselled he avily on the importance of tobacco abstinence and the dangers not quiting may pose. Discussed various options for cessation with patient. Vapes nicotine containing substance Pt counselled dio westbrook on the importance of tobacco abstinence and the dangers not quiting may pose. Discussed various options for cessation with patient. Cyst of thyroid US ordered, BW today. Treatment Notes Test Name Order Date PLZ THYROID, SOFT TISSUE HEAD +NECK US 2021-05-14 Next Appt Details 6 w, BW today Reason: Provider Name:Susanne Casey, 2021-06-25 08:30:00 AM, [address], , [place], [address], Insurance Providers Payer Name Payer Address Payer Phone Insured Name Patient Relati onship to Insured Coverage Start Date Coverage End Date [facility] [address] [facility] [id number] MOMO AMBROSIO self
== END 2021-07-14 23:02 | disposition home or self-care (01) ==
LOC: M ED 20:38
DX: S50.12XA Contusion of left forearm, initial encounter (principal); S30.0XXA Contusion of lower back and pelvis, initial encounter; W10.8XXA Fall (on) (from) other stairs and steps, initial encounter; Y92.018 Other place in single-family (private) house as the place of occurrence of the external cause; J45.909 Unspecified asthma, uncomplicated; Z88.5 Allergy status to narcotic agent

== ENCOUNTER → 2022-06-16 | Outpatient (CLI) | payer OTHER | LOC: M WHC 11:30 | PROVIDERS: ATTEND Physician Assistant Medical | DX: E04.1 Nontoxic single thyroid nodule (principal) ==

== ENCOUNTER → 2023-06-12 | Outpatient (CLI) | payer OTHER | LOC: M WHC 13:11 | PROVIDERS: ATTEND Physician Assistant Medical | DX: E04.1 Nontoxic single thyroid nodule (principal) ==

== ENCOUNTER → 2023-06-24 | Outpatient (CLI) | payer OTHER | LOC: M ADAMS 11:44 | PROVIDERS: ATTEND Physician Assistant Medical | DX: M54.42 Lumbago with sciatica, left side (principal) ==

== ENCOUNTER → 2024-03-21 | Outpatient (REF) | payer OTHER | LOC: M SFHCADAM 17:18 | PROVIDERS: ATTEND Physician Assistant | DX: R30.0 Dysuria (principal) ==

== ENCOUNTER 2025-01-11 21:23 | Emergency (ER) | payer OTHER ==
[~2025-01-11] VITALS: Ht 152.4 cm; Wt 96.2 kg
[2025-01-11] MEDS ORDERED: MUCI1TAB18 PO (21:34)
[2025-01-12 00:06] VITALS: BP 156/84; TEMP 97.8; O2SAT 100
[2025-01-12] MEDS: BACTRIM 160MG/800MG DS TAB PO ONE (00:46)
[2025-01-12] MEDS ORDERED: BACT800T5 PO (00:47)
== END 2025-01-12 00:51 | disposition home or self-care (01) ==
LOC: M ED 21:23
DX: H60.12 Cellulitis of left external ear (principal); Z88.5 Allergy status to narcotic agent; Z79.2 Long term (current) use of antibiotics

== ENCOUNTER → 2025-06-28 | Outpatient (CLI) | payer OTHER ==
[~2025-06-28] MED LIST changes: +BACT800T5 PO; +MUCI1TAB18 PO
== END ==
LOC: M RAD 10:10
PROVIDERS: ATTEND Physician Assistant Medical
DX: Z53.9 Procedure and treatment not carried out, unspecified reason (principal)

== ENCOUNTER → 2025-06-28 | Outpatient (CLI) | payer OTHER ==
[~2025-06-28] MED LIST changes: +GASTROGRAFIN SOLUTION 30 ML As Ordered ONE; +ISOVUE-370 76% 100 ML VIAL As Ordered ONE
== END ==
LOC: M RAD 11:04
PROVIDERS: ATTEND Physician Assistant Medical
DX: R10.24 Suprapubic pain (principal); R10.31 Right lower quadrant pain; R19.09 Other intra-abdominal and pelvic swelling, mass and lump

== ENCOUNTER → 2025-07-10 | Outpatient (CLI) | payer OTHER ==
[~2025-07-10] MED LIST changes: -GASTROGRAFIN SOLUTION 30 ML As Ordered ONE; -ISOVUE-370 76% 100 ML VIAL As Ordered ONE
== END ==
LOC: M RAD 14:04
PROVIDERS: ATTEND Physician Assistant Medical
DX: N83.291 Other ovarian cyst, right side (principal); N83.02 Follicular cyst of left ovary; Z97.5 Presence of (intrauterine) contraceptive device